=== PATIENT | male | born 1950 | race Caucasian/White ===

== ENCOUNTER → 2017-01-31 | Outpatient (CLI) | payer MEDICARE, OTHER ==
--- NOTE | 2017-01-31 13:16 | KCIC ---
Left Upper Extremity Venous Doppler Ultrasound Indication: Nonocclusive clot of the left basilic vein, I82.622. Comparison: Same examination August 24, 2016. Procedure: Color Doppler, spectral Doppler, and grayscale imaging was performed of the upper extremity. Imaged veins were jugular, subclavian, axillary, brachial, radial, ulnar, basilic, and cephalic veins. Findings: The veins are patent and demonstrate normal Doppler flow dynamics. There is no evidence of upper extremity venous thrombosis. There has been interval resolution of the previously identified left basilic vein thrombosis. Impression: 1. No evidence of left upper extremity deep venous thrombosis. 2. Interval resolution of left basilic superficial venous thrombosis. Electronically signed by: Jelani Marley MD (01/31/2017 1:13 PM) [place] [id number]
== END | disposition home or self-care (01) ==
LOC: KCIC US 11:58
DX: I82.622 Acute embolism and thrombosis of deep veins of left upper extremity (principal)
CPT/HCPCS: 93971